=== PATIENT | female | born 1970 | race Hispanic/Latino ===

== ENCOUNTER → 2018-04-05 | Day surgery (SDC) | payer BC ==
--- NOTE | 2018-04-04 14:46 | Diagnostic Imaging Report ---
EXAMINATION: PA and lateral views of the chest. COMPARISON: None CLINICAL HISTORY: Preoperative study for gallbladder surgery DISCUSSION: Lines/tubes: None. Lungs: The lungs are well inflated and clear. There is no evidence of pneumonia or pulmonary edema. Pleura: There is no pleural effusion or pneumothorax. Heart and mediastinum: The cardiomediastinal silhouette is normal. Bones and soft tissues: No acute bony abnormalities. IMPRESSION: No acute cardiopulmonary abnormalities. Signed by: Dr. Mario Jacobo M.D. on 04/04/2018 2:43 PM
[~2018-04-05] MED LIST: ALBUTEROL SULFAT2 MG PO; BUPIVACAINE 0.5%/EPI 30 ML SDV INJ ONE; FENTANYL CITRATE/PF 100MCG/2 ML INJ ONE; KETOROLAC TROMETHAMINE 30 MG/ML VIAL ONE; MIDAZOLAM HCL 2 MG/2 ML VIAL ONE; MONTELUKAST SOD10 MG PO; MORPHINE SULFATE INJ 4 MG/ML INJ 1ML ONE; OMEPRAZOLE40 MG PO; ONDANSETRON HCL INJ 2MG/ML 2ML 2 MG/ML VIAL ONE; PROMETHAZINE HCL (IM) 25 MG/ML VIAL ONE; PROPOFOL IV EMULSION 10 MG/ML 20 ML VIAL ONE; ROCURONIUM BROMIDE 10 MG/ML 5ML VIAL ONE; SYMBICORT 16010.2 GM INH
--- OUTSIDE RECORDS SUMMARY | 2018-04-05 05:23 | XMS REPORT ---
Author [facility] Address Unknown Phone Unavailable Care Team Providers Care Sybase Developer Name Role Phone YUNG DAVIS Unavailable Unavailable Problems This patient has no known problems. Allergies, Adverse Reactions, Alerts This patient has no known allergies or adverse reactions. Medications This patient has no known medications. Results Test Description Test Time Test Comments Text Results Atomic Results Result Comments CHEST 2 VIEWS 2018-04-04 14:41:00 [place] [id number] Patient Name: MARIA A TOBIN MR #: [id number] : 1970 Age/Sex: 48/F Req #: [id number] Adm Physician: Ordered by: YUNG DAVIS MD Report #: [id number] Location: OR Room/Bed: Procedure: [id number] DX/CHEST 2 VIEWS Exam Date: 04/04/18 Exam Time: 1330 REPORT STATUS: Signed EXAMINATION: PA and lateral views of the chest. C OMPARISON: None CLINICAL HISTORY: Preoperative study for gallbladder surgery DISCUSSION: Lines/tubes: None. Lungs: The lungs are well inflated and clear. There is no evidence of pneumonia or pulmonary edema. Pleura: There is no pleural effusion or pneumothorax. Heart and mediastinum: The cardiomediastinal silhouette is normal. Bones and soft tissues: No acute bony abnormalities. IMPRESSION: No acute cardiopulmonary abnormalities. Signed by: Dr. Alin Phelps M.D. on 04/04/2018 2:43 PM Dictated By: ALIN PHELPS MD [id number] Transcribed By: MARVIN on 04/04/18 1445 COPY TO: YUNG DAVIS MD
--- NOTE | 2018-04-05 09:40 | Operative Report ---
DATE OF PROCEDURE: April 05, 2018 PREOPERATIVE DIAGNOSIS: Cholelithiasis and chronic cholecystitis. POSTOPERATIVE DIAGNOSIS: Cholelithiasis and chronic cholecystitis. PROCEDURE PERFORMED: Laparoscopic cholecystectomy. ANESTHESIA: General endotracheal. ESTIMATED BLOOD LOSS: Minimal. DRAINS: None. COMPLICATIONS: None. INDICATIONS AND FINDINGS: The patient is a 48-year-old female with a long-standing history of right upper quadrant pain, nausea, and gallstones. She was seen a year ago and advised surgery. She comes back requesting surgery now because of persistent pain. INTRAOPERATIVE FINDINGS: The patient had a large single stone. No ductal dilatation. There was hydrops of the gallbladder, which had to be decompressed. Preoperatively, there was no ductal dilatation. Preoperatively, the liver chemistries were normal. Intraoperative findings were hydrops of the gallbladder with a large single stone. No ductal dilatation. After the procedure, decompression of hydrops of the gallbladder. DESCRIPTION OF PROCEDURE: With the patient lying on the table in the supine position and after administration of general anesthesia, she was prepped and draped for laparoscopic cholecystectomy. The procedure was begun by establishing a pneumoperitoneum in the umbilical site after stab wound was made in that location and the saline drop test was performed. A pneumoperitoneum was insufflated to 15 mm of pressure. Then a 10/11 trocar placed in that location. The patient rotated to the left and with the head up, and we placed a 10 mm subxiphoid port, and then 2 lateral working ports, 5 mm each in the right midclavicular line and right anterior axillary line. The gallbladder was then retracted cephalad using grasping forceps. It had to be decompressed because we could not grab it well and clear bile was obtained. After we did that, we detached the omentum and part of the transverse colon that was loosely adherent to the gallbladder and then exposed the neck of the gallbladder. Began the dissection in that location exposing the cystic duct. The junction with the common bile duct was seen. Then the cystic duct and bile duct junction was identified, and then clipped distally 3 times and once proximally. The cystic artery was identified and transected with the titanium clips. Then the gallbladder was taken down from the liver bed using electrocautery dissection. The gallbladder was detached and removed through the umbilical port. The right upper quadrant was inspected and irrigated. There was no bile leak. No bleeding. No apparent bowel injury. The pneumoperitoneum was released. The wound was closed using 0 Vicryl for the umbilical fascia, 3-0 Vicryl for the subcutaneous tissue in that location, as well as the subxiphoid port. The skin of all the ports was closed using connie. Then 0.25% Marcaine with epinephrine was given as a local block. The patient tolerated the procedure well. Taken to the recovery room in stable condition. Job#: [id number] [employer]
[2018-04-05 09:55] VITALS: BP 129/77
== END | disposition home or self-care (01) ==
LOC: OR 05:19
PROVIDERS: ATTEND Surgery
DX: K80.10 Calculus of gallbladder with chronic cholecystitis without obstruction (principal); K21.9 Gastro-esophageal reflux disease without esophagitis; D64.9 Anemia, unspecified; J45.909 Unspecified asthma, uncomplicated; G47.33 Obstructive sleep apnea (adult) (pediatric); Z01.818 Encounter for other preprocedural examination
CPT/HCPCS: 47562; 71046; 81025; 88304; C1766; J1885; J2250; J2270; J2405; J2550; J2704

== ENCOUNTER → 2021-11-16 | Day surgery (SDC) | payer BC ==
[~2021-11-16] MED LIST changes: +ACETAMINOPHEN 1000 MG/100 ML IV ONE; -BUPIVACAINE 0.5%/EPI 30 ML SDV INJ ONE; +BUPIVACAINE HCL 0.25% 10ML MPF VIAL INJ ONE; +DEXAMETHASONE SOD PHOS INJ 4 MG/ML SDV ONE; -FENTANYL CITRATE/PF 100MCG/2 ML INJ ONE; +LIDOCAINE HCL 2% LOCAL INJ 5 ML SDV VIAL INJ ONE; +LOSARTAN POTASS25 MG PO; -MIDAZOLAM HCL 2 MG/2 ML VIAL ONE; -MORPHINE SULFATE INJ 4 MG/ML INJ 1ML ONE; +POVIDONE IODINE 0.05% 0.05 % ML PO ONE; -PROMETHAZINE HCL (IM) 25 MG/ML VIAL ONE; -ROCURONIUM BROMIDE 10 MG/ML 5ML VIAL ONE; +SEVOFLURANE INHAL SOLN 250 ML PEN BTL ONE
[2021-11-16 08:40] VITALS: BP 144/84
== END | disposition home or self-care (01) ==
LOC: OR 07:05
PROVIDERS: ATTEND Specialist
DX: S83.221A Peripheral tear of medial meniscus, current injury, right knee, initial encounter (principal); M17.11 Unilateral primary osteoarthritis, right knee; M22.41 Chondromalacia patellae, right knee; J45.909 Unspecified asthma, uncomplicated; I10 Essential (primary) hypertension; E78.5 Hyperlipidemia, unspecified; K21.9 Gastro-esophageal reflux disease without esophagitis; M54.2 Cervicalgia; M54.9 Dorsalgia, unspecified; X58.XXXA Exposure to other specified factors, initial encounter; Z01.810 Encounter for preprocedural cardiovascular examination
CPT/HCPCS: 29881; 81025; 93005; J0131; J0690; J1100; J1885; J2001; J2405; J2704

== ENCOUNTER → 2022-12-19 | Day surgery (SDC) | payer BC ==
[~2022-12-19] MED LIST changes: -ACETAMINOPHEN 1000 MG/100 ML IV ONE; +AMOXICILLIN500 MG PO; +BREZTRI AEROS10.7 GM INH; -BUPIVACAINE HCL 0.25% 10ML MPF VIAL INJ ONE; -DEXAMETHASONE SOD PHOS INJ 4 MG/ML SDV ONE; -KETOROLAC TROMETHAMINE 30 MG/ML VIAL ONE; +LACTATED RINGER'S 1,000 ML ONE; +LOSARTAN-HCTZ1 EAC2 PO; +MAGNESIUM/POTASSIUM PO; -ONDANSETRON HCL INJ 2MG/ML 2ML 2 MG/ML VIAL ONE; -POVIDONE IODINE 0.05% 0.05 % ML PO ONE; +PROBIOTIC & AC1 EACH PO; -SEVOFLURANE INHAL SOLN 250 ML PEN BTL ONE
[2022-12-19 11:43] VITALS: BP 149/93; PULSE 62; RESP 16; O2SAT 97
== END | disposition home or self-care (01) ==
LOC: OR 08:25
PROVIDERS: ATTEND Internal Medicine Gastroenterology
DX: K21.9 Gastro-esophageal reflux disease without esophagitis (principal); K29.50 Unspecified chronic gastritis without bleeding; K31.A15 Gastric intestinal metaplasia without dysplasia, involving multiple sites; K20.90 Esophagitis, unspecified without bleeding; K44.9 Diaphragmatic hernia without obstruction or gangrene; K62.5 Hemorrhage of anus and rectum; K59.00 Constipation, unspecified; K64.8 Other hemorrhoids; R07.9 Chest pain, unspecified; I10 Essential (primary) hypertension; J45.909 Unspecified asthma, uncomplicated; E78.5 Hyperlipidemia, unspecified; D64.9 Anemia, unspecified; Z01.810 Encounter for preprocedural cardiovascular examination; Z79.899 Other long term (current) drug therapy; Z68.41 Body mass index [BMI] 40.0-44.9, adult; Z87.01 Personal history of pneumonia (recurrent)
CPT/HCPCS: 43239; 81025; 93005; J2001; J2704; J7121